=== PATIENT | female | born 1950 | race Caucasian/White ===

== ENCOUNTER 2017-10-29 12:56 | Emergency (ER) | payer MEDICARE ==
[~2017-10-29] VITALS: Ht 163.8 cm; Wt 102.3 kg
[2017-10-29 12:58] VITALS: BP 178/82; PULSE 66; RESP 16; TEMP 97.9; O2SAT 98
[2017-10-29] MEDS ORDERED: GABA100C4 PO (13:16)
[2017-10-29] MEDS ORDERED: TRAZ300T2 PO (13:16)
[2017-10-29] MEDS ORDERED: TIZA2CAP3 PO (13:16)
[2017-10-29] MEDS ORDERED: BENI5TAB4 PO (13:16)
[2017-10-29] MEDS ORDERED: OMEP40CA2 PO (13:16)
[2017-10-29] MEDS ORDERED: CHOLESTEROL PILL (13:16)
[2017-10-29] MEDS ORDERED: THYROID PILL (13:16)
[2017-10-29] MEDS ORDERED: [UNRECOGNIZED DRUG - REMARK] (13:16)
--- NOTE | 2017-10-29 13:50 | PD ---
HPI Chief Complaint: Cold / Flu Symptoms Time Seen by Provider: 13:18 Travel History International Travel<30 days: No Contact w/Intl Traveler<30days: No Traveled to known affect area: No History of Present Illness HPI 67-year-old female presents to the emergency room for evaluation of cough for the past 4 weeks. Patient states her symptoms started as a regular cold with sore throat, congestion, and cough but the cough persisted. It is occasionally productive of light green sputum. Cough is so severe that she has developed body aches. She has been taking [id number] medications without significant relief in symptoms. She denies objective fevers but reports chills and night sweats. She has also complaining of dysuria, urgency, and frequency for the past 2 weeks. Denies flank pain, nausea, or vomiting. PFSH Past Medical History Depression: Yes Cardiovascular Problems: Yes (HTN, hyperlipidemia) High Cholesterol: Yes GERD: Yes Hypertension: Yes Ulcer: Yes Tetanus Vaccination: > 5 Years Influenza Vaccination: No ?: Not Menopausal: Yes Tubal Ligation: Yes Past Surgical History Cholecystectomy: Yes Neurologic Surgery: Yes (NECK AND BACK ) Tonsillectomy: Yes Social History Alcohol Use: No Tobacco Use: No Substance Use: No Allergies-Medications (Allergen,Severity, Reaction): Coded Allergies: aspirin (Verified Allergy, Severe, BLEEDING, 10/29/17) Reported Meds & Prescriptions Reported Meds & Active Scripts Active Keflex (Cephalexin) 500 Mg Cap 500 Mg PO Q12H 7 Days Reported Benicar (Olmesartan) 5 Mg Tab 5 Mg PO DAILY Tizanidine (Tizanidine HCl) 2 Mg Cap 2 Mg PO TID Gabapentin 100 Mg Cap 100 Mg PO BID Trazodone (Trazodone HCl) 300 Mg Tab 300 Mg PO HS Omeprazole 40 Mg Cap 40 Mg PO DAILY [Thyroid Pill] [Hypertension Pill] [Cholesterol Pill] Review of Systems Except as stated in HPI: all other systems reviewed are Neg Physical Exam Narrative GENERAL: Well-nourished, well-developed female in no acute distress. Afebrile. Ambulatory. SKIN: Focused skin assessment warm/dry. HEAD: Normocephalic. EYES: No scleral icterus. No injection or drainage. ENT: Mucosa pink and moist. No erythema or exudates. No uvular edema. No uvular , palatal, or tonsillar deviation. Airway patent. Nasal turbinates appear normal without nasal blood, purulent drainage or septal hematoma. NECK: Supple, trachea midline. No JVD or lymphadenopathy. CARDIOVASCULAR: Regular rate and rhythm without murmurs, gallops, or rubs. RESPIRATORY: Breath sounds equal bilaterally. No accessory muscle use. No crackles, rales, wheezes, or rhonchi. Data Data Last Documented VS Vital Signs Date Time Temp Pulse Resp B/P (MAP) Pulse Ox O2 Delivery O2 Flow Rate FiO2 10/29/17 12:58 97.9 66 16 178/82 (114) 98 Room Air Orders Orders Chest, Pa & Lat (10/29/17 ) Urinalysis - C+S If Indicated (10/29/17 13:39) Urine Culture (10/29/17 13:45) Labs Laboratory Tests Test 10/29/17 13:45 Urine Color YELLOW Urine Turbidity CLEAR Urine pH 5.5 Urine Specific [place] 1.012 Urine Protein NEG mg/dL Urine Glucose (UA) NEG mg/dL Urine Ketones NEG mg/dL Urine Occult Blood NEG Urine Nitrite POS Urine Bilirubin NEG Urine Urobilinogen LESS THAN 2.0 MG/DL Urine Leukocyte Esterase TRACE Urine RBC 1 /hpf Urine WBC 3 /hpf Urine Bacteria FEW /hpf Urine Mucus FEW /lpf Microscopic Urinalysis Comment CULTURE INDICATED MDM Medical Decision Making Medical Screen Exam Complete: Yes Emergency Medical Condition: Yes Medical Record Reviewed: Yes Differential Diagnosis Bronchitis, pneumonia, UTI, upper respiratory infection Narrative Course 67-year-old female presents to the emergency room for evaluation of cough and cold symptoms that have persisted for 4 weeks. Cough is occasionally productive of green sputum. Patient denies objective fevers. She also complains of UTI symptoms area, urgency, and frequency for the past 2 weeks. No systemic signs of infection or CVA tenderness. She is afebrile and well- appearing in the emergency room. Vital signs stable. Coughing infrequently. Lungs sounds clear and equal bilaterally. Chest x-ray is negative. History and physical exam are consistent with bronchitis. Patient is very stable for outpatient treatment with prednisone. UA shows evidence of infection for which she will be treated with Keflex. Told to follow-up with her primary care physician or return for worsening symptoms. She understands and agrees to plan. Diagnosis Primary Impression: Acute bronchitis Qualified Codes: J20.9 - Acute bronchitis, unspecified Additional Impression: Urinary tract infection Qualified Codes: N30.00 - Acute cystitis without hematuria Referrals: Primary Care Physician Additional Instructions: Rest and drink plenty of fluids. Prednisone as directed, until gone. Keflex as directed, until gone. Follow-up with a primary care physician. Return to the emergency room for worsening symptoms. Med/Other Pt SpecificInfo: Prescription(s) given Scripts Cephalexin (Keflex) 500 Mg Cap 500 MG PO Q12H for Infection for 7 Days, #14 CAP 0 Refills Prov: Kp De Guzman MD 10/29/17 Disposition: 01 DISCHARGE HOME Condition: Stable Hortencia Feng Oct 29, 2017 13:50
[2017-10-29 14:08] LABS: BACTERIA, URINE FEW /hpf; BILIRUBIN, URINE NEG (NEG); BLOOD, URINE NEG (NEG); GLUCOSE,URINE NEG (NEG); KETONE, URINE NEG (NEG); MUCUS URINE FEW /lpf (OCC); NITRITE,URINE POS (NEG); PH, URINE 5.5 (5.0-8.5); URINE COLOR YELLOW (YELLW/STRAW); URINE LEUKOCYTE ESTERASE TRACE (NEG)
[2017-10-29] MEDS ORDERED: CEPH-460 PO (14:13)
--- NOTE | 2017-10-29 14:21 | RADRPT ---
EXAM DATE/TIME: 10/29/2017 13:50 [facility] COMPARISON: No previous studies available for comparison. INDICATIONS : Cough. Short of breath. MEDICAL HISTORY : None. SURGICAL HISTORY : Fusion, cervical. ENCOUNTER: Initial ACUITY: 1 month PAIN SCORE: 0/10 LOCATION: Bilateral chest FINDINGS: PA and lateral views of the chest demonstrate the lungs to be symmetrically aerated without evidence of mass, infiltrate or effusion. The cardiomediastinal contours are unremarkable. Osseous structure s are intact. Fusion hardware is noted within the cervical spine. CONCLUSION: No acute disease. Harmeet Mcneil MD on October 29, 2017 at 14:18 Board Certified Radiologist. This report was verified electronically.
[2017-10-29] MEDS ORDERED: PRED20 PO (14:24)
[2017-10-29] MEDS ORDERED: BENZ100 PO (14:25)
== END 2017-10-29 14:40 | disposition home or self-care (01) ==
LOC: NEPK 12:56
DX: J20.9 Acute bronchitis, unspecified (principal); N30.00 Acute cystitis without hematuria; B96.20 Unspecified Escherichia coli [E. coli] as the cause of diseases classified elsewhere; E78.00 Pure hypercholesterolemia, unspecified; I10 Essential (primary) hypertension; K21.9 Gastro-esophageal reflux disease without esophagitis; F32.9 Major depressive disorder, single episode, unspecified
CPT/HCPCS: 71046; 81001; 87077; 87086; 87186; 99284